=== PATIENT | female | born 1960 | race Caucasian/White ===

== ENCOUNTER 2025-01-17 17:51 | Emergency (ER) | payer OTHER, SELFPAY ==
[2025-01-17 17:54] VITALS: BP 171/84; PULSE 80; PULSE 84; RESP 19; RESP 20; TEMP 36.7; O2SAT 96; BMI 49.9
[2025-01-17 18:44] VITALS: BP 147/83; PULSE 79; RESP 19; TEMP 36.7; O2SAT 96
--- NOTE | 2025-01-17 19:28 | XR_ITS ---
Examination: CT brain head without contrast. 2-D sagittal coronal reconstructions Date and time of exam:January 17, 2025, 1943 hours INDICATIONS: Patient tripped and fell today with injury of the head, head pain. CTDI: vol (mGy):48.8. DLP: (mGycm):983. Technique: Multiple CT axial sections of the brain have been obtained, 5 mm slice thickness. Contrast has not been administered. 2-D sagittal, coronal reconstructions have been obtained Low dose protocols were performed. One or more of the following dose reduction techniques were used; automated exposure control, adjustment of the mA and/or KV according to patient size, use of iterative reconstruction technique. Findings: No significant ventricular enlargement. Intra-axial or extra-axial hemorrhage density is not seen. No mass effect or midline shift Basal cisterns are not remarkable. Fourth ventricle is midline. Cranial vault intact. Impression: Negative for acute hemorrhage, mass effect or midline shift
--- NOTE | 2025-01-17 19:28 | XR_ITS ---
Examination: CT cervical spine without contrast 2-D sagittal reconstructions 2-D coronal reconstructions 3-D reconstructions. Exam date and time:January 17, 2025 1943 hours INDICATIONS: Patient tripped and fell today with injury to the neck, neck pain CTDI:vol (mGy) 20.8. DLP: (mGycm) 464. Technique: Multiple 2 mm axial sections of the cervical spine have been obtained. The coronal and sagittal reconstructions have been obtained. 3-D reconstructions have been obtained. Low dose protocols were performed. One or more of the following dose reduction techniques were used; automated exposure control, adjustment of the mA and/or KV according to patient size, use of iterative reconstruction technique. Findings: Axial sections demonstrate intact base of the skull. C1 exhibit satisfactory relationship to the odontoid. No acute cervical vertebral body fracture seen. Alignment posterior spinous processes satisfactory. Impression: No acute cervical fracture.
[2025-01-17] MEDS: KETOROLAC INJ 60 MG/2 ML VIAL 30 MG IM (20:04)
--- NOTE | 2025-01-17 23:51 | PD.EDFALL ---
ED Fall Injury RME/HPI General Chief Complaint: Fall Stated Complaint: FALL Time Seen by Provider: 01/17/25 18:43 Arrival date/time: 01/17/25 17:51 Related Data Previous Rx's ?Medication ?Instructions ?Recorded meloxicam 15 mg tablet 15 mg PO QDAY #10 tabs 01/17/25 Allergies Allergy/AdvReac Type Severity Reaction Status Date / Time acetaminophen Allergy Severe Nausea Verified 01/17/25 17:58 Penicillins Allergy Severe Hives Verified 01/17/25 17:58 Sulfa (Sulfonamide Allergy Severe Hives Verified 01/17/25 17:58 Antibiotics) Course Orders Category Date Time Status CT cervical spine wo con Stat Exams 01/17/25 19:[address] head/brain wo con Stat Exams 01/17/25 19:28 Completed Ketorolac Inj [Toradol Inj] Med 01/17/25 19:28 Discontinued 30 mg IM X1 ONE Vital Signs Vital signs: Vital Signs Temperature 98.0 F 01/17/25 17:54 Pulse Rate 80 01/17/25 17:54 Respiratory Rate 19 01/17/25 17:54 Blood Pressure 171/84 H 01/17/25 17:54 Pulse Oximetry (%) 96 01/17/25 17:54 Oxygen Delivery Method Room Air 01/17/25 17:54 Fall Medications / Prescriptions Medication administrations:: Medication Administration History Discontinued Medications Ketorolac Tromethamine (Ketorolac Inj 60 Mg/2 Ml Vial) 30 mg IM X1 ONE Stop: 01/17/25 19:29 Last Admin: 01/17/25 20:04 Dose: 30 mg Documented By: Discharge Plan Plan Patient Disposition: HOME (Self Care) Discharge Disposition comment: Stable and Improved Prescriptions/Referrals Prescriptions/Med Rec: New meloxicam 15 mg tablet 15 mg PO QDAY Qty: 10 0RF Referrals: Shemar Recinos PA-C [Primary Care Provider] - In 1 week Problem List Clinical Impression: Facial contusion, Concussion without loss of consciousness, initial encounter Patient/Caregiver Discharge Instructions Education Materials: ED Facial Contusion, ED Head Injury (Adult) Additional Instructions: Use ice packs to your face to help reduce pain and swelling. Take the anti-inflammatory as needed, as prescribed. Contact your employer to determine the Worker's Compensation clinic you need to follow-up with. Follow-up with your primary care physician in 24 to 48 hours. Return to the ED for any new or worsening symptoms. Print Language: Lao Stand Alone Forms: Jacqueline Award Info., Patient Portal Info Letter PA/FERMENTER [place] Supervising Physician PA/FERMENTER [place] Supervising Physician: Dr. Bravo
[2025-01-17 23:56] VITALS: BP 145/67; PULSE 87; RESP 19; TEMP 36.6; O2SAT 99
[2025-01-18 00:36] VITALS: BP 155/67; PULSE 78; RESP 20; TEMP 36.9; O2SAT 99
== END 2025-01-18 00:38 | disposition home or self-care (01) ==
PROVIDERS: Emergency Provider Emergency Medicine; PCP Physician Assistant
DX: S06.0X0A Concussion without loss of consciousness, initial encounter (principal); S19.9XXA Unspecified injury of neck, initial encounter; W01.0XXA Fall on same level from slipping, tripping and stumbling without subsequent striking against object, initial encounter; Y99.0 Civilian activity done for income or pay
CPT/HCPCS: 70450; 72125; 96372; 99283; J1885